=== PATIENT | female | born 1980 | race Caucasian/White ===

== ENCOUNTER 2016-12-05 09:00 | Inpatient (IN) | payer OTHER ==
[~2016-12-05] VITALS: Ht 162.6 cm; Wt 70.4 kg
[2016-12-05 09:24] VITALS: Ht 162.6 cm; Wt 70.4 kg
[2016-12-05] MEDS ORDERED: PREN-93 PO (09:25)
[2016-12-05] MEDS ORDERED: METHYLERGONOVINE 0.2 MG INJ IM PRN (09:30)
[2016-12-05] MEDS ORDERED: MINERAL OIL LIGHT 10 ML VIAL TOP PRN (09:30)
[2016-12-05] MEDS ORDERED: AMPICILLIN 2 GM/NS (PMX) 100 ML IV ONE (09:30)
[2016-12-05] MEDS ORDERED: CARBOPROST 250 MCG INJ IM PRN (09:30)
[2016-12-05] MEDS ORDERED: OXYTOCIN 30 UNITS/LR 500 ML IV PRN (09:30)
[2016-12-05] MEDS ORDERED: IBUPROFEN 600 MG TAB PO PRN (09:30)
[2016-12-05] MEDS ORDERED: MISOPROSTOL 200 MCG TAB PR PRN (09:30)
[2016-12-05] MEDS ORDERED: LIDOCAINE 1% (MPF) 30 ML INJ INJ PRN (09:30)
[2016-12-05] MEDS ORDERED: BUTORPHANOL 2 MG INJ IV PRN ×2 (09:30)
[2016-12-05 09:38] VITALS: BP 133/81; PULSE 62; RESP 18
[2016-12-05 09:59] LABS: ADD SCAN DIFF NO
[2016-12-05 10:03] LABS: BASOPHILS % 0.2 % (0.0-2.0); EOSINOPHILS # 0.1 10^3/ul (0.0-0.5); EOSINOPHILS % 0.8 % (0.0-7.0); HEMATOCRIT 37.4 % (37.0-47.0); HEMOGLOBIN 12.7 g/dl (12.0-16.0); LYMPHOCYTES # 2.4 10^3/ul (0.8-2.9); LYMPHOCYTES % 38.1 % (15.0-51.0); MEAN CORPUSCULAR VOLUME 97.1 fl (82.0-101.0); MONOCYTE # 0.5 10^3/ul (0.3-0.9); MONOCYTES % 8.5 % (0.0-11.0); NEUTROPHIL # 3.3 10^3/ul (1.6-7.5); NEUTROPHILS % 52.1 % (39.0-77.0); PLATELET COUNT 180 10^3/UL (140-415); RED BLOOD COUNT 3.85 10^6/ul (4.20-5.40); RED CELL DISTRIBUTION WIDTH 13.2 % (11.5-14.5); WHITE BLOOD COUNT 6.3 10^3/ul (4.8-10.8)
[2016-12-05] MEDS: LACTATED RINGER'S 1,000 ML IV SCH ×2 (10:24→17:24)
[2016-12-05 10:47] LABS: INR 0.89; PT RATIO 0.9
[2016-12-05] MEDS ORDERED: ONDA-43 PO (10:58)
[2016-12-05] MEDS ORDERED: AZIT1PAC9 PO (10:58)
[2016-12-05] MEDS ORDERED: DINOPROSTONE 10 MG VAG SUPP VAG ONE (11:30)
[2016-12-05] MEDS ORDERED: AZITHROMYCIN 250 MG TAB PO ONE (11:30)
[2016-12-05] MEDS: AMPICILLIN 1 GM/NS (PMX) 50 ML IV SCH ×3 (13:26→21:19)
[2016-12-05] MEDS ORDERED: LACTATED RINGER'S 1,000 ML IV PRN (15:00)
--- NOTE | 2016-12-05 18:23 | HP ---
Date/Time of Note Date/Time of Note DATE: 12/05/16 TIME: 18:19 OB - History Hx of Present Free Text/Dictation admitted at38 + weeks for possible lupus per perinatologist Last Menstrual Period: Mar 12, 2016 Estimated Due Date: December 17, 2016 : 3 Para: 2 Care: Limited Care Ultrasounds: Normal mid trimester US Obstetrical Complications: Other (+ OVIDIO and + RF and positive lupus anticoagulants ) Other Concerns: positive chlamydia and positive GBS Past Family/Social History * Past Medical, Surgical, Family and Obstetric Histories reviewed from chart. Blood Type: O+ Rubella: immune RPR/VDRL: Negative GBS Status: Positive HBsAG: Negative OB Admission Exam Vital Signs Vital Signs Vital Signs Date Time Temp Pulse Resp B/P Pulse Ox O2 Delivery O2 Flow Rate FiO2 12/05/16 09:38 97.7 62 18 133/81 Room Air Physical Exam HEENT: WNL Heart: Rhythm Normal Lungs: Clear, Equal Abdomen: WNL Extremities: Normal Reflexes: Normal Cervical Dilatation: 1cm Effacement: 0% Station: -3 Membranes: Intact Heart Rate: 140's Accelerations: Accelerations Present Decelerations: No Decelerations Varibility: Marked Contractions on Admission: None Last 72 hours Lab Results CBC & BMP 12/05/16 09:45 OB Assessment/Plan Reason for admission: induction of labor Other Assessment: TERM gestation for induction of the labor Induction Method: per Misoprostol Protocol ANDRÉS ARMSTRONG MD December 05, 2016 18:23
[2016-12-06] MEDS ORDERED: FENTAnyl 2MCG/ML-ROPIV 0.2% 100 ML ONE (01:54)
[2016-12-06] MEDS: LACTATED RINGER'S 1,000 ML IV SCH ×3 (01:57→16:55)
[2016-12-06] MEDS: AMPICILLIN 1 GM/NS (PMX) 50 ML IV SCH ×5 (02:25→17:41)
[2016-12-06] MEDS ORDERED: NALOXONE (0.4 MG/ML) INJ IV PRN (03:00)
[2016-12-06] MEDS ORDERED: DIPHENHYDRAMINE 50 MG INJ IV PRN (03:00)
[2016-12-06] MEDS: ONDANSETRON 4 MG INJ IV PRN ×2 (06:52→13:09)
[2016-12-06] MEDS: FENTAnyl 2MCG/ML-ROPIV 0.2% 100 ML BAG EPI SCH ×3 (07:46→19:26)
[2016-12-06] MEDS: OXYTOCIN 30 UNITS/LR 500 ML IV SCH ×2 (10:30→20:54)
--- NOTE | 2016-12-06 19:18 | LDN ---
Date/Time of Note Date/Time of Note DATE: 12/06/16 TIME: 19:15 Delivery Summary of a viable over intact perineum Weeks of Gestation 38+ Placenta Delivered: Spontaneously, Intact & Complete Meconium: none Episiotomy: No Perineal laceration: 0 Anesthesia type: Epidural Estimated blood loss: 200 Sponge & Needle done & correct: Yes All needle counts correct: Yes Any foreign bodies felt in the: No Problems: Infant Delivery Information Sex Infant Sex: female Apgars 1 Minute: 8 5 Minute: 9 Suctioning Nose & mouth suctioned at daniel: Yes Delee suction performed: No Umbilical Cord Umbilical cord with: 3 Vessels Cord presentations: no nuchal cord Cord Blood was obtained: Yes Mother & Baby Disposition Disposition Mom & Baby to Maternity; Good: Yes (mother and baby were recovered in good condition ) Mom transferred to: Other (maternity ) Baby to NICU: No ANDRÉS ARMSTRONG MD December 06, 2016 19:18
[2016-12-06 21:20] VITALS: BP 132/74; PULSE 89; RESP 19
[2016-12-06] MEDS ORDERED: OXYTOCIN 30 UNITS/LR 500 ML IV PRN (21:30)
[2016-12-06] MEDS ORDERED: DIBUCAINE 1% 30 GM OINT PR PRN (21:30)
[2016-12-06] MEDS ORDERED: LANOLIN 7 GM TUBE TOP PRN (21:30)
[2016-12-06] MEDS ORDERED: METHYLERGONOVINE 0.2 MG INJ IM PRN (21:30)
[2016-12-06] MEDS ORDERED: MISOPROSTOL 200 MCG TAB PR PRN (21:30)
[2016-12-06] MEDS ORDERED: BENZOCAINE 20% 56 ML SPRAY TOP PRN (21:30)
[2016-12-06] MEDS ORDERED: ACETAMINOPHEN/CODEINE #3 TAB PO PRN ×2 (21:30)
[2016-12-06] MEDS ORDERED: CARBOPROST 250 MCG INJ IM PRN (21:30)
[2016-12-06] MEDS ORDERED: WITCH HAZEL/GLYCERIN PAD PR PRN (21:30)
[2016-12-06] MEDS ORDERED: ZOLPIDEM 5 MG TAB PO PRN (21:30)
[2016-12-06 22:20] VITALS: BP 127/68; PULSE 74; RESP 19
[2016-12-06] MEDS: CEPHALEXIN 500 MG CAP PO SCH (23:37)
[2016-12-06] MEDS: IBUPROFEN 600 MG TAB PO SCH (23:37)
[2016-12-07 00:15] VITALS: BP 120/59; PULSE 66; RESP 18
[2016-12-07] MEDS: LACTATED RINGER'S 1,000 ML IV* SCH ×3 (00:46→13:26)
[2016-12-07 04:15] VITALS: BP 117/62; PULSE 70; RESP 18
[2016-12-07] MEDS: CEPHALEXIN 500 MG CAP PO SCH ×4 (05:27→23:38)
[2016-12-07] MEDS: IBUPROFEN 600 MG TAB PO SCH ×4 (05:27→23:38)
[2016-12-07 07:30] VITALS: BP 117/59; PULSE 70; RESP 19
[2016-12-07 08:03] LABS: ADD SCAN DIFF NO
[2016-12-07 08:08] LABS: BASOPHILS % 0.3 % (0.0-2.0); EOSINOPHILS # 0.1 10^3/ul (0.0-0.5); EOSINOPHILS % 0.7 % (0.0-7.0); HEMATOCRIT 32.6 % (37.0-47.0); HEMOGLOBIN 10.9 g/dl (12.0-16.0); LYMPHOCYTES # 2.7 10^3/ul (0.8-2.9); LYMPHOCYTES % 25.9 % (15.0-51.0); MEAN CORPUSCULAR HEMOGLOBIN 32.8 pg (29.0-33.0); MEAN CORPUSCULAR HGB CONC 33.4 g/dl (32.0-37.0); MEAN CORPUSCULAR VOLUME 98.2 fl (82.0-101.0); MEAN PLATELET VOLUME 11.2 fl (7.4-10.4); MONOCYTE # 0.8 10^3/ul (0.3-0.9); MONOCYTES % 7.9 % (0.0-11.0); NEUTROPHIL # 6.7 10^3/ul (1.6-7.5); NEUTROPHILS % 64.8 % (39.0-77.0); PLATELET COUNT 146 10^3/UL (140-415); RED BLOOD COUNT 3.32 10^6/ul (4.20-5.40); RED CELL DISTRIBUTION WIDTH 13.4 % (11.5-14.5); WHITE BLOOD COUNT 10.3 10^3/ul (4.8-10.8)
[2016-12-07] MEDS: MAGNESIUM HYDROXIDE 30ML CUP PO SCH ×2 (11:00→20:56)
[2016-12-07] MEDS: SENNA/DOCUSATE NA (8.6MG/50MG) TAB PO SCH ×2 (11:00→20:56)
[2016-12-07 15:59] VITALS: BP 102/63; PULSE 65; RESP 19
--- NOTE | 2016-12-07 18:02 | PN ---
Date/Time of Note Date/Time of Note DATE: 12/07/16 TIME: 17:59 Assessment/Plan VTE Prophylaxis VTE Prophylaxis Intervention: ambulation Lines/Catheters IV Catheter Type (from [facility] Saline Lock Assessment/Plan Assessment/Plan proceed with BTL next day per patient request Subjective 24 Hr Interval Summary Free Text/Dictation No major complaints Constitutional: improved, no complaints Eyes: no complaints ENT: no complaints Respiratory: no complaints Cardiovascular: no complaints Gastrointestinal: no complaints Genitourinary: no complaints Musculoskeletal: no complaints Skin: no complaints Neurologic: no complaints Endocrine: no complaints Lymphatic: no complaints Psychological: nl mood/affect, no complaints Immunologic: no complaints Exam/Review of Systems Vital Signs Vitals Vital Signs Date Time Temp Pulse Resp B/P Pulse Ox O2 Delivery O2 Flow Rate FiO2 12/07/16 15:59 97.7 65 19 102/63 Room Air Intake and Output 12/06/16 12/06/16 12/07/16 15:00 23:00 07:00 Intake Total 600 ml 1797 ml 1250 ml Output Total 150 ml 1750 ml 350 ml Balance 450 ml 47 ml 900 ml Exam fundus: firm Constitutional: alert, oriented, well developed Psych: nl mood/affect, no complaints Head: atraumatic, normocephalic Eyes: EOMI, PERRL, nl conjunctiva, nl lids, nl sclera ENMT: nl external ears & nose, nl lips & teeth, nl nasal mucosa & septum Neck: non-tender, supple Respiratory: clear to auscultation, normal air movement Cardiovascular: nl pulses, regular rate and rhythm Gastrointestinal: nl liver, spleen, non-tender, soft Musculoskeletal: nl extremities to inspection, nl gait and stance Extremities: normal pulses Neurological: [employer] II-XII intact, nl mental status, nl speech, nl strength Skin: nl turgor, No rash or lesions Lymph: nl lymph nodes Results Result Diagram: 12/07/16 0640 Results 24 hrs Laboratory Tests Test 12/07/16 06:40 White Blood Count 10.3 # Red Blood Count 3.32 L Hemoglobin 10.9 L Hematocrit 32.6 L Mean Corpuscular Volume 98.2 Mean Corpuscular Hemoglobin 32.8 Mean Corpuscular Hemoglobin Concent 33.4 Red Cell Distribution Width 13.4 Platelet Count 146 Mean Platelet Volume 11.2 H Neutrophils % 64.8 Lymphocytes % 25.9 Monocytes % 7.9 Eosinophils % 0.7 Basophils % 0.3 Nucleated Red Blood Cells % 0.0 Neutrophils # 6.7 Lymphocytes # 2.7 Monocytes # 0.8 Eosinophils # 0.1 Basophils # 0.0 Nucleated Red Blood Cells # 0.0 Medications Medications Current Medications Lactated Ringer's (Lr) 1,000 ml @ 125 mls/hr Q8H IV* Last administered on 12/07 00:46; Admin Dose 125 MLS/HR; Start 12/06/16 at 21:26 Ibuprofen (Motrin) 600 mg Q6 PO Last administered on 12/07/16 17:38; Admin Dose 600 MG; Start 12/07/16 at 00:00 Acetaminophen/ Codeine Phosphate (Tylenol No.3) 1 tab Q4H PRN PO PAIN LEVEL 1-5 ; Start 12/06/16 at 21:30 Acetaminophen/ Codeine Phosphate (Tylenol No.3) 2 tab Q4H PRN PO PAIN LEVEL 6- 10; Start 12/06/16 at 21:30 Zolpidem Tartrate (Ambien) 5 mg QHS PRN PO INSOMNIA; Start 12/06/16 at 21:30 Senna/Docusate Sodium (Senokot-S) 1 tab BID PO Last administered on 12/07/16 11:00; Admin Dose 1 TAB; Start 12/07/16 at 09:00 Magnesium Hydroxide (Milk Of Mag) 30 ml Q12 PO Last administered on 12/07/16 11:00; Admin Dose 30 ML; Start 12/07/16 at 09:00 Measles/Mumps/ Rubella Vaccine Live (Mmr Ii Vaccine) 0.5 ml ONCE ONCE SC* ; Start 12/08/16 at 09:00; Stop 12/08/16 at 09:01 Diphtheria/ Tetanus/Acell Pertussis (Adacel) 0.5 ml ONCE ONCE IM* ; Start at 09:00; Stop 12/08/16 at 09:01 Varicella Virus Vaccine Live 1350 unit 1,350 unit ONCE ONCE SC* ; Start at 09:00; Stop 12/08/16 at 09:01 Oxytocin/Lactated Ringer's 500 ml @ 0 mls/hr ONCE PRN IV For Hemorrhage Management; Start 12/06/16 at 21:30 Methylergonovine Maleate (Methergine) 0.2 mg ONCE PRN IM VAGINAL BLEEDING; Start 12/06/16 at 21:30 Carboprost Tromethamine (Hemabate) 250 mcg ONCE PRN IM VAGINAL BLEEDING; Start 12/06/16 at 21:30 Misoprostol (Cytotec) 1,000 mcg ONCE PRN [place] VAGINAL BLEEDING; Start 12/06/16 at 21:30 Cephalexin (Keflex) 500 mg Q6 PO Last administered on 12/07/16t 17:38; Admin Dose 500 MG; Start 12/07/16 at 00:00 ANDRÉS ARMSTRONG MD December 07, 2016 18:02
[2016-12-08 04:15] VITALS: BP 131/65; PULSE 72; RESP 18
[2016-12-08] MEDS ORDERED: LACTATED RINGER'S 1,000 ML IV SCH (05:00)
[2016-12-08] MEDS: CEPHALEXIN 500 MG CAP PO SCH ×3 (05:34→17:48)
[2016-12-08] MEDS: IBUPROFEN 600 MG TAB PO SCH ×3 (05:34→17:48)
[2016-12-08 08:10] VITALS: BP 123/74; PULSE 66; RESP 18
[2016-12-08] MEDS: MAGNESIUM HYDROXIDE 30ML CUP PO SCH (09:00)
[2016-12-08] MEDS ORDERED: DIPHTH/TET/ACEL PERTUSS (ADULT) 0.5 ML VIAL IM* ONE (09:00)
[2016-12-08] MEDS ORDERED: MEASLES,MUMPS,RUBELLA VACCINE INJ SC* ONE (09:00)
[2016-12-08] MEDS: SENNA/DOCUSATE NA (8.6MG/50MG) TAB PO SCH (09:00)
[2016-12-08] MEDS ORDERED: VARICELLA VACCINE LIVE/PF 1,350 UNIT/0.5 ML ML SC* ONE (09:00)
[2016-12-08] MEDS: LACTATED RINGER'S 1,000 ML IV* SCH (09:38)
[2016-12-08 12:30] VITALS: BP 140/80; PULSE 85; RESP 16
[2016-12-08 15:10] VITALS: BP 148/80; PULSE 63; RESP 17
--- NOTE | 2016-12-08 16:57 | DS ---
Date/Time of Note Date/Time of Note DATE: 12/08/16 TIME: 16:56 Obstetrical Discharge Record Final Diagnosis Final Diagnosis: Term delivered Other Final Diagnosis S/P vaginal delivery Vaginal Delivery Obstetrical Delivery: Spontaneous Complications Augmentation: Yes Induction: Yes Condition on Discharge Physical Assessment Last Vitals: see nurses notes Voiding: Yes Bowel Movement: Yes Breast: Soft, non-tender, Filling Fundus: Firm Abdomen and Incision: soft BS + Episiotomy: NA Calf Tenderness: No Patient Condition: Good ANDRÉS ARMSTRONG MD December 08, 2016 16:57
--- NOTE | 2016-12-08 16:58 | PD.PPDC ---
MASON LINER Discharge Instruction Provider Information Physician Information 36 y/o female had vaginal delivery Diagnosis Final Diagnosis: S/P vaginal delivery Condition Patient Condition: Good Diet Diet: Resume Regular Diet Activity/Restrictions Activity: Normal Activity May Shower Restrictions: Nothing in the Vagina Return to Work or School: Jan 26, 2017 Follow-up Follow-up with Physician: 4, Week/Weeks (in clinic ) Return to clinic for OB Instructions: Breast Tenderness Depression ANDRÉS ARMSTRONG MD December 08, 2016 16:58
[2016-12-08] MEDS ORDERED: IBUP-1542 PO (16:59)
== END 2016-12-08 19:02 | disposition home or self-care (01) | DRG 775 ==
LOC: L-D 09:14 → PP1 12-06 21:20
PROVIDERS: ADMIT Obstetrics & Gynecology; ATTEND Obstetrics & Gynecology
PROC: 10E0XZZ Delivery of Products of Conception, External Approach (ICD-10-PCS; principal; 2016-12-06)
DX: O80 Encounter for full-term uncomplicated delivery (principal); Z37.0 Single live birth; Z3A.38 38 weeks gestation of pregnancy
CPT/HCPCS: 62319; 85025; 85610; 85730; 86592; 86900; 86901; 87340; 90715; 90716; J0290; J2405; J2590; J3010; J7120

== ENCOUNTER 2017-04-21 11:58 | Day surgery (SDC) | payer OTHER ==
[2017-04-20 11:35] VITALS: BMI 22.7
[~2017-04-21] VITALS: Ht 162.6 cm; Wt 58.4 kg
[2017-04-21] VITALS (19 sets, daily range): BP systolic 106–129; BP diastolic 55–78; PULSE 62–80; RESP 11–17; Ht 162.6 cm; Wt 58.4 kg
[~2017-04-21 11:58] MED LIST: IBUP-1542 PO; PREN-93 PO
[2017-04-21] MEDS ORDERED: PROPOFOL 20 ML ONE (14:36)
[2017-04-21] MEDS ORDERED: ROCURONIUM 50 MG INJ ONE (14:36)
[2017-04-21] MEDS ORDERED: FENTAnyl 50 MCG/ML VIAL ONE (14:36)
[2017-04-21] MEDS ORDERED: MIDAZOLAM 1 MG/ML 2 ML INJ ONE (14:37)
--- NOTE | 2017-04-21 14:43 | HP ---
Date/Time of Note Date/Time of Note DATE: 04/21/17 TIME: 14:40 Assessment/Plan VTE Prophylaxis VTE Prophylaxis Intervention: ambulation Lines/Catheters IV Catheter Type (from Nrsg): Peripheral IV Assessment/Plan Assessment/Plan multiparity with desire for sterilization will proceed with laparoscopic tubal fulguration HPI/ROS Admit Date/Time Admit Date/Time 04/21/2017 Hx of Present Illness here for elective sterilization procedure 36 y/o female P3 LMP 03/27/17 for sterilization procedure ROS Constitutional: improved, no complaints Eyes: no complaints ENT: no complaints Respiratory: no complaints Cardiovascular: no complaints Gastrointestinal: no complaints Genitourinary: no complaints Musculoskeletal: no complaints Skin: no complaints Neurologic: no complaints Endocrine: no complaints Lymphatic: no complaints Psychological: nl mood/affect, no complaints Immunologic: no complaints PMH/Family/Social Past Medical History Medical History: other (discoid lupus ) Past Surgical History Past Surgical Hx: no surgical history Family History Significant Family History: no pertinent family hx Social History Alcohol Use: none Smoking Status: Never smoker Drug Use: none Exam/Review of Systems Vital Signs Vitals Vital Signs Date Time Temp Pulse Resp B/P Pulse Ox O2 Delivery O2 Flow Rate FiO2 04/21/17 12:35 98.0 70 16 113/60 100 Room Air Exam Exam has discoid lesions on her face Constitutional: alert, oriented, well developed Psych: nl mood/affect, no complaints Head: atraumatic, normocephalic Eyes: EOMI, PERRL, nl conjunctiva, nl lids, nl sclera ENMT: nl external ears & nose, nl lips & teeth, nl nasal mucosa & septum Neck: non-tender, supple Respiratory: clear to auscultation, normal air movement Cardiovascular: nl pulses, regular rate and rhythm Gastrointestinal: nl liver, spleen, non-tender, soft Musculoskeletal: nl extremities to inspection Extremities: normal pulses 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
[2017-04-21] MEDS ORDERED: ROPIVACAINE 0.2% 20 ML VIAL ONE (14:47)
[2017-04-21] MEDS ORDERED: BUPIVACAINE 0.5%/EPI (SDV) 30 ML INJ ONE (15:23)
[2017-04-21] MEDS ORDERED: FENTAnyl 50 MCG/ML VIAL IV PRN ×3 (15:30)
[2017-04-21] MEDS ORDERED: MEPERIDINE 25 MG INJ IV PRN (15:30)
[2017-04-21] MEDS ORDERED: DIPHENHYDRAMINE 50 MG INJ IV PRN (15:30)
[2017-04-21] MEDS ORDERED: EPHEDrine SULFATE 50 MG/5 ML SYG IV PRN (15:30)
[2017-04-21] MEDS ORDERED: ONDANSETRON 4 MG INJ IV PRN (15:30)
[2017-04-21] MEDS ORDERED: morphine (1 MG/ML) 10ML SYRINGE IV PRN ×3 (15:30)
[2017-04-21] MEDS ORDERED: METOCLOPRAMIDE 10 MG INJ ONE (15:42)
[2017-04-21] MEDS ORDERED: ONDANSETRON 4 MG INJ ONE (15:42)
[2017-04-21] MEDS ORDERED: KETOROLAC 30 MG INJ ONE (15:42)
[2017-04-21] MEDS ORDERED: SUGAMMADEX SODIUM 200 MG/2 ML VIAL IV ONE (15:44)
[2017-04-21] MEDS ORDERED: CEFAZOLIN 1 GM INJ ONE (15:51)
--- NOTE | 2017-04-21 15:54 | OPR ---
Operative Report Planned Procedure Procedure date Apr 21, 2017 Procedure(s) bilateral tubal fulguration via laparoscopy Performed by see signature line Anesthesiologist: ALLISON NASSAR MD Pre-procedure diagnosis multiparity with desire for sterilization Anesthesia Type: general Procedure Description The patient was placed on the OR table in the supine position. General anesthesia was induced. The patient was turned into lithotomy position for vaginal and laparoscopic procedure specifically. Perineal, vaginal, and abdominal area were then prepped with Betadine and draped for a usual laparoscopic procedure and a vaginal procedure. A Trimble catheter was then inserted into urinary bladder under aseptic condition in operating room and under satisfactory anesthesia, a small speculum was inserted into vagina. Anterior lip of the cervix was secured with a tenaculum. Cervix was brought down to operative field. It was progressively dilated to #6 Hegar. A HUMI elevator was inserted into cervical canal and afterwards uterine cavity. After insufflation of the tube all the other instruments were removed from vaginal cavity. After changing gloves, turning to abdominal side, a small incision was placed just below belly button 0.5 cm in length. A 0.5 cm trocar was introduced inside the incision. The trocar was blunt and pointing toward the uterine dome. The trocar was easily inserted inside the abdominal. A laparoscope was then inserted into the abdominal cavity, making sure the correct cavity was entered. Intra-abdominal cavity was insufflated with CO2. Under direct visualization a small incision was made a 0.5 cm in length about 2 to 3 fingerbreadths above and parallel to the symphysis pubis. A 0.5 cm trocar was then introduced inside the incision. Under direct visualization the second probe was also inserted into abdominal cavity easily. The uterus and fallopian tubes were easily identified. Right fallopian tube was approached first and at least 5 cm of the tube was adequately fulgurated, making sure no live tissue was left in between. The same procedure was done on the left side. Serious care was taken to avoid bowel, bladder, or other intra-abdominal organ injury. At this point, procedure was terminated. The trocar incision sites from inside the abdomen on either side were observed. No bleeding was observed. After removing the laparoscope, the abdomen was desufflated to its normal position. Afterwards, all of the trocar sleeves were removed. Abdominal incisions were closed using pan. The HUMI was then discontinued. Also, Trimble was taken out. The patient was returned to supine position. Estimated blood loss was less than 5 mL. The patient tolerated the procedure very well and was transferred to postanesthesia recovery room in stable and good condition. Post-Procedure Post-procedure diagnosis S/P bilateral tubal fulguration via laparoscopy Findings: Live Baby [], Apgars [] and [], weight [], position [], [] presentation []cord. Estimated blood loss: minimal Specimen(s): no Grafts/Implants: no Complication(s): no Pt Condition post procedure: stable Disposition: PACU Physician Certification I, the undersigned physician, hereby certify that I have discussed the procedure described in this consent form with this patient (or the patient's legal outside sales representative insurance), including: * The risk and benefits of the procedure; * Any adverse reactions that may reasonably be expected to occur; * Any alternative efficacious methods of treatment which may be medically viable ; * The potential problems that may occur during recuperation; * Potential for blood transfusion and associated risks/benefits; and * Any research or economic interest I may have regarding this treatment. I further certify that the patient/legally responsible person was encouraged to ask question and that all questions were answered. ANDRÉS ARMSTRONG MD Apr 21, 2017 15:54
[2017-04-21] MEDS ORDERED: KETOROLAC 30 MG INJ IM STA ×2 (15:55→15:59)
[2017-04-21] MEDS ORDERED: BUTORPHANOL 2 MG INJ IM ONE (16:00)
[2017-04-21] MEDS ORDERED: DOXYCYCLINE 100 MG TAB PO ONE (16:00)
[2017-04-23] MEDS ORDERED: INFLUENZA VIRUS VACCINE 0.5 ML (DISPENSING) IM* ONE (09:00)
== END 2017-04-21 17:56 | disposition home or self-care (01) ==
LOC: SDS 11:58
PROVIDERS: ATTEND Obstetrics & Gynecology
DX: Z30.2 Encounter for sterilization (principal)
CPT/HCPCS: 58670; J0595; J0690; J1885; J2250; J2405; J2765; J2795; J3010; Z7512; Z7610